=== PATIENT | female | born 1985 | race Asian ===

== ENCOUNTER → 2024-10-07 | Day surgery (SDC) | payer MEDICAID ==
[~2024-10-07] MED LIST: BENA-8 PO; EMPA25TA PO; FERR325T6 PO; INSLIS SUBCUT; INSU100I28 SQ; LIDOCAINE HCL 1% 10 MG/ML 10ML VIAL ONE; METF-414 PO; SODIUM BICARBONATE 4.2% 2.5MEQ/5ML VIAL IV ONE; TIRZ15PE IJ
== END | disposition home or self-care (01) ==
LOC: RAD 08:47
PROVIDERS: ATTEND Surgery Surgical Oncology
DX: N60.91 Unspecified benign mammary dysplasia of right breast (principal); N60.92 Unspecified benign mammary dysplasia of left breast; Z79.899 Other long term (current) drug therapy; Z88.0 Allergy status to penicillin; Z91.040 Latex allergy status; Z88.8 Allergy status to other drugs, medicaments and biological substances; Z98.890 Other specified postprocedural states
CPT/HCPCS: 19281; 19282; J2003; J3490; A4648

== ENCOUNTER → 2024-10-14 | Day surgery (SDC) | payer MEDICAID ==
[~2024-10-14] VITALS: Ht 160 cm; Wt 77.1 kg
[~2024-10-14] MED LIST changes: +ACETAMINOPHEN 1000MG/100ML 100 ML IV ONE; +BUPIVACAINE HCL/PF 0.5% (5MG/ML) 10ML ONE; +CLINDAMYCIN 900MG PREMIX 50 ML IV ONE; +FAMOTIDINE 20MG/2ML VIAL IV ONE; +FENTANYL CITRATE/PF 50MCG/ML 2ML VIAL ONE; -LIDOCAINE HCL 1% 10 MG/ML 10ML VIAL ONE; +LIDOCAINE HCL/EPINEPHRINE 1%-EPI 1:100,000 20ML VIAL ONE; +METOCLOPRAMIDE HCL 10MG/2ML VIAL ONE; +MIDAZOLAM HCL 2 MG/2 ML VIAL ONE; +ONDANSETRON HCL 4MG/2ML INJ IV PRN; +ONDANSETRON HCL 4MG/2ML INJ ONE; +PROPOFOL 200MG/20ML VIAL IV ONE; -SODIUM BICARBONATE 4.2% 2.5MEQ/5ML VIAL IV ONE; +SODIUM CHLORIDE 0.9% 1,000 ML IV SCH
[2024-10-14 09:41] LABS: UCG KIT EXPIRATION DATE 01/03/2027; UCG KIT LOT# 958452; UCG SCREEN NEGATIVE
[2024-10-14 14:19] VITALS: BP 112/62; PULSE 97; RESP 23
[2024-10-14] MEDS: HYDROMORPHONE HCL/PF 1MG/ML INJ IV PRN (14:19)
== END | disposition home or self-care (01) ==
LOC: OR 09:17
PROVIDERS: ATTEND Surgery Surgical Oncology
DX: N60.92 Unspecified benign mammary dysplasia of left breast (principal); N60.91 Unspecified benign mammary dysplasia of right breast; I10 Essential (primary) hypertension; E11.9 Type 2 diabetes mellitus without complications; Z79.4 Long term (current) use of insulin; Z79.899 Other long term (current) drug therapy; Z98.890 Other specified postprocedural states; Z79.84 Long term (current) use of oral hypoglycemic drugs; Z88.0 Allergy status to penicillin; Z91.040 Latex allergy status; Z88.8 Allergy status to other drugs, medicaments and biological substances
CPT/HCPCS: 19301; 81025; 82962; 76098; J3010; J0665; J3490; J1308; J2004; J2765; J2250; J2405; J2704; J1171; J0131